=== PATIENT | male | born 1995 | race American Indian/Alaskan Native ===

== ENCOUNTER 2017-04-17 11:22 | Emergency (ER) | payer SELFPAY ==
[2017-04-17 11:33] VITALS: BP 116/79
--- NOTE | 2017-04-17 14:41 | Emergency Department Report ---
ED Rash HPI - HPI Chief Complaint: Skin Rash Stated Complaint: BODY RASH/ITCHING Time Seen by Provider: 04/17/17 14:14 ED Review of Systems ROS: Stated complaint: BODY RASH/ITCHING Other details as noted in HPI ED Past Medical Hx - Past Medical History Previous Medical History?: Yes Hx Asthma: Yes - Surgical History Past Surgical History?: No - Social History Smoking Status: Current Every Day Smoker Substance Use Type: Alcohol, Marijuana, Other - Medications Home Medications: Home Medications Medication Instructions Recorded Confirmed Last Taken Type Cephalexin [Keflex] 500 mg PO Q12HR #20 cap 08/22/16 Unknown Rx Cetirizine HCl [ZyrTEC] 10 mg PO DAILY #30 capsule 08/22/16 Unknown Rx methylPREDNISolone [Medrol] 4 mg PO DAILY #1 tab.ds.pk 08/22/16 Unknown Rx Rash Exam - Exam General: Vital signs noted. No distress. Alert and acting appropriately. ED Course Vital Signs 04/17/17 11:29 Temperature 98.4 F Pulse Rate 69 Respiratory 16 Rate Blood Pressure 116/79 O2 Sat by Pulse 98 Oximetry Critical care attestation.: If time is entered above; I have spent that time in minutes in the direct care of this critically ill patient, excluding procedure time. ED Disposition Condition: Stable
--- NOTE | 2017-04-17 14:56 | Emergency Department Report ---
Entered by MARIA D GONZALES, acting as scribe for GUDELIA HESS PA. ED General Adult HPI - General Chief complaint: Skin Rash Stated complaint: BODY RASH/ITCHING Time Seen by Provider: 04/17/17 14:14 Source: patient Mode of arrival: Ambulatory Limitations: No Limitations - History of Present Illness Initial comments: Pt is a 21 y.o. male with a PMHx of asthma who presents to [facility] for evaluation of one month hx of constant, circular, well-demarcated, pruritic rashes at his bilateral upper and lower extremities, and now beginning at his groin. Patient notes that he has been using Lotrimin with minimal relief. He denies fever or chills. He denies pus drainage. He reports that he works in construction. MD Complaint: rash Onset/Timin -: month(s) Location: genitals, upper extremity, lower extremity Consistency: constant Improves with: none Worsens with: none Associated Symptoms: denies: fever/chills, other (No pus drainage. ) Treatments Prior to Arrival: other (Lotrimin) - Related Data Previous Rx's Medication Instructions Recorded Last Taken Type Cephalexin [Keflex] 500 mg PO Q12HR #20 cap 08/22/16 Unknown Rx Cetirizine HCl [ZyrTEC] 10 mg PO DAILY #30 capsule 08/22/16 Unknown Rx methylPREDNISolone [Medrol] 4 mg PO DAILY #1 tab.ds.pk 08/22/16 Unknown Rx Fluconazole [Diflucan TAB] 150 mg PO QWEEK #4 tablet 04/17/17 Unknown Rx Ketoconazole 2% [Nizoral] 15 gm TP QDAY #1 tube 04/17/17 Unknown Rx Allergies Allergy/AdvReac Type Severity Reaction Status Date / Time No Known Allergies Allergy Unverified 08/22/16 12:40 ED Review of Systems Constitutional: denies: chills, fever Respiratory: no symptoms reported Endocrine: no symptoms reported Skin: rash, pruritus. denies: other (Negative for drainage) ED Past Medical Hx - Past Medical History Previous Medical History?: Yes Hx Asthma: Yes - Surgical History Past Surgical History?: No - Social History Smoking Status: Current Every Day Smoker Substance Use Type: Alcohol, Marijuana, Other - Medications Home Medications: Home Medications Medication Instructions Recorded Confirmed Last Taken Type Cephalexin [Keflex] 500 mg PO Q12HR #20 cap 08/22/16 Unknown Rx Cetirizine HCl [ZyrTEC] 10 mg PO DAILY #30 capsule 08/22/16 Unknown Rx methylPREDNISolone [Medrol] 4 mg PO DAILY #1 tab.ds.pk 08/22/16 Unknown Rx Fluconazole [Diflucan TAB] 150 mg PO QWEEK #4 tablet 04/17/17 Unknown Rx Ketoconazole 2% [Nizoral] 15 gm TP QDAY #1 tube 04/17/17 Unknown Rx ED Physical Exam - General Limitations: No Limitations General appearance: alert, in no apparent distress - Head Head exam: Present: atraumatic, normocephalic - Eye Eye exam: Present: normal appearance - ENT ENT exam: Present: mucous membranes moist - Neck Neck exam: Present: normal inspection - Respiratory Respiratory exam: Present: normal lung sounds bilaterally. Absent: respiratory distress - Cardiovascular Cardiovascular Exam: Present: regular rate, normal rhythm. Absent: systolic murmur, diastolic murmur, rubs, gallop - GI/Abdominal GI/Abdominal exam: Present: soft, normal bowel sounds - Rectal Rectal exam: Present: deferred - Extremities Exam Extremities exam: Present: normal inspection - Back Exam Back exam: Present: normal inspection - Neurological Exam Neurological exam: Present: alert, oriented X3 - Psychiatric Psychiatric exam: Present: normal affect, normal mood - Skin Skin exam: Present: dry, intact, rash (Circular, well-demarcated, scaly lesions on upper and lower extremities suggestive of tinia corpus. Slightly bumpy and erythematous, but well-demarcated. Also visible lesions on shaft of penis and inguinal crease. Well-demarcated. ). Absent: cyanosis, diaphoretic ED Course Vital Signs 04/17/17 11:29 Temperature 98.4 F Pulse Rate 69 Respiratory 16 Rate Blood Pressure 116/79 O2 Sat by Pulse 98 Oximetry ED Medical Decision Making - Medical Decision Making A/P: Tinea cruris, tinea corporis 1-patient has failed Lotrimin will give course of topical ketoconazole and 4 week course of every week fluconazole as per up-to-[email or web address] recommendations 2-follow-up with primary care and dermatology ED Disposition Clinical Impression: Tinea corporis, Tinea cruris Disposition: TO HOME OR SELFCARE Is pt being admited?: No Does the pt Need Aspirin: No Condition: Stable Instructions: Tinea Corporis (ED), Jock Itch (ED) Prescriptions: Fluconazole [Diflucan TAB] 150 mg PO QWEEK #4 tablet Ketoconazole 2% [Nizoral] 15 gm TP QDAY #1 tube Referrals: [facility] [Provider Group] - 3-5 Days RANDY HSU MD [Staff Physician] - 3-5 Days Forms: Work/School Release Form(ED) This documentation as recorded by the CHRISTIAN ashford KELLY,accurately reflects the service I personally performed and the decisions made by ,GUDELIA HESS PA.
== END 2017-04-17 15:49 | disposition home or self-care (01) ==
LOC: ED 11:22
DX: B35.4 Tinea corporis (principal); B35.6 Tinea cruris; J45.909 Unspecified asthma, uncomplicated; F17.200 Nicotine dependence, unspecified, uncomplicated; F12.90 Cannabis use, unspecified, uncomplicated
CPT/HCPCS: 99282